=== PATIENT | male | born 1985 | race Two or more races ===

== ENCOUNTER 2022-08-26 11:26 | Emergency (ER) | payer MEDICAID ==
[~2022-08-26] VITALS: Ht 175.3 cm; Wt 70.0 kg
[2022-08-26 15:08] VITALS: BP 114/78
[2022-08-26] MEDS ORDERED: IBUP600T28 PO (15:43)
[2022-08-26] MEDS ORDERED: ONDA-144 PO (15:43)
[2022-08-26] MEDS ORDERED: AZITTAB PO (15:43)
[2022-08-26] MEDS ORDERED: cefTRIAXone SOD 1,000 MG VL IM ONE (15:45)
[2022-08-26] MEDS ORDERED: ONDANSETRON ODT 4 MG TAB PO ONE (15:45)
[2022-08-26] MEDS ORDERED: ACETAMINOPHEN 500 MG TAB PO ONE (15:45)
== END 2022-08-26 16:17 | disposition home or self-care (01) ==
LOC: ER 11:26
DX: J06.9 Acute upper respiratory infection, unspecified (principal); J45.909 Unspecified asthma, uncomplicated; R07.89 Other chest pain; Z20.822 Contact with and (suspected) exposure to COVID-19
CPT/HCPCS: 36415; 71046; 87426; 93005; 96372; 99285; J0696; Q0162